=== PATIENT | female | born 1965 | race Caucasian/White ===

== ENCOUNTER 2020-12-09 00:53 | Inpatient (IN) | payer BC, SELFPAY ==
[2020-12-09] VITALS (12 sets, daily range): BP systolic 100–121; BP diastolic 61–82; PULSE 71–88; RESP 14–24; TEMP 35.9–36.9; O2SAT 93–98; BMI 30.5; BMI 30.2
--- NOTE | 2020-12-09 01:30 | ED_ITS ---
HPI - General Adult General Stated complaint: thinks pancreatitis attack Time Seen by Provider: 12/09/20 01:00 History of Present Illness HPI narrative: 55-year-old woman with a history of hyperlipidemia and hypothyroidism who presents with what she believes is acute recurrent pancreatitis. She states that she has had episodes previously that she had assumed were autoimmune related. She denies any regular alcohol use takes only Synthroid. Her symptoms began yesterday with mild right-sided abdominal pain that continued to increase until 11:00 p.m. tonight when it was so severe that she was no longer able to manage pain at home. Yesterday and today she was eating and drinking only clear liquids. She denies any fevers, cough, palpitations she had a normal bowel movement this morning. No dysuria no flank pain. She describes her current pain as severe right upper quadrant radiating through to her back associated with abdominal distension. Related Data Allergies Allergy/AdvReac Type Severity Reaction Status Date / Time No Known Drug Allergies Allergy Verified 12/09/20 01:39 Review of Systems Review of Systems Narrative: Remainder of complete review of systems is otherwise unremarkable except for that included in the HPI. Patient History Medical History (Updated 12/09/20 @ 05:08 by Nessa Becerra MD) Ectopic Hot flashes Hyperlipidemia Hypothyroidism Pancreatitis Surgical History (Updated 12/09/20 @ 05:08 by Nessa Becerra MD) History of lumbar laminectomy Family History (Updated 12/09/20 @ 05:09 by Nessa Becerra MD) Father Hyperlipidemia Heart disease Mother Substance abuse Alcoholism /alcohol abuse Social History household members: spouse and children Smoking Status: Never smoker alcohol intake: never Exam Narrative Exam Narrative: General: Healthy appearing, in severe distress. Able to give a complete and coherent history. Well-nourished well-developed HEENT: Moist mucous membranes, normal sclera with reactive pupils, mildly diaphoretic secondary to pain Neck: supple Respiratory: Lungs are clear to auscultation, no wheezing no rales no rhonchi. Full and symmetrical air movement Cardiac: Regular rate and rhythm no murmurs no bruits Abdomen: Distended, significantly tender in the upper quadrants worse on the right than the left good bowel tones, no flank pain Skin: Warm and dry, no rashes Neurologic: Grossly neurologically intact with no obvious asymmetries or abnormalities Extremities: No trauma, well perfused Psych: Cooperative, appropriate insight and affect Initial Vital Signs Initial Vital Signs: Vital Signs Pulse Rate 81 12/09/20 01:20 Pulse Oximetry 97 12/09/20 01:20 Course Orders Ordered: ED Orders 12/09/20 01:30 Complete Blood Count AUTO DIFF Stat Comprehensive Metabolic Panel Stat Lipase Stat Lipid Panel Stat Magnesium Stat 12/09/20 01:35 CT abdomen pelvis w con Stat 12/09/20 01:55 COVID19 - ADMIT (DISPATCH ASSOCIATE swab/PCR) Stat Enoxaparin Sodium (Enoxaparin 40 Mg/0.4 Ml Syringe) 40 mg 0.5 mg/kg (40 mg) SUBCUT DAILY STELLA Enoxaparin Sodium (Enoxaparin 40 Mg/0.4 Ml Syringe) 40 mg SUBCUT DAILY STELLA Hydromorphone HCl (Hydromorphone 1 Mg Inj) 1 mg IV Q4H PRN PRN Reason: Pain, Moderate (4-6) Hydromorphone HCl (Hydromorphone 1 Mg Inj) 1 mg IV Q6H PRN PRN Reason: Pain, Severe (7-10) Lactated Ringer's (Lactated Ringers) 1,000 mls @ 150 mls/hr IV CONT STELLA Lactated Ringer's (Lactated Ringers) 1,000 mls @ 100 mls/hr IV CONT STELLA Naloxone HCl (Naloxone 0.4 Mg/Ml Vial) 0.2 mg IV Q2MIN PRN PRN Reason: Opiate Reversal Ondansetron HCl (Ondansetron 4 Mg/2 Ml Inj) 4 mg IV Q6HR PRN PRN Reason: Nausea And Vomiting Ondansetron HCl (Ondansetron 4 Mg/2 Ml Inj) 4 mg IV Q8HR PRN PRN Reason: Nausea And Vomiting Discontinued Medications Hydromorphone HCl (Hydromorphone 0.5 Mg Inj) 0.5 mg IV Q15MIN PRN PRN Reason: Pain, Last Admin: 12/09/20 03:28 Dose: 0.5 mg Documented by: Admin: 12/09/20 01:47 Dose: 0.5 mg Documented by: ELEN Sodium Chloride (Normal Saline 0.9%) 1,000 mls @ 1,000 mls/hr IV BOLUS ONE Stop: 12/09/20 02:33 Last Infusion: 12/09/20 03:24 Dose: 0 mls/hr Documented by: Admin: 12/09/20 01:46 Dose: 1,000 mls/hr Documented by: ELEN Ondansetron HCl (Ondansetron 4 Mg/2 Ml Inj) 4 mg IV NOW ONE Stop: 12/09/20 01:35 Last Admin: 12/09/20 01:47 Dose: 4 mg Documented by: ELEN Vital Signs Vital signs: Vital Signs - 8 hr 12/09/20 01:20 12/09/20 01:30 12/09/20 01:39 Temperature 98.2 F Pulse Rate 81 80 82 Respiratory Rate 24 Blood Pressure 120/82 Pulse Oximetry 97 96 98 12/09/20 02:00 12/09/20 02:30 12/09/20 03:00 Temperature Pulse Rate 78 82 71 Respiratory Rate Blood Pressure Pulse Oximetry 95 97 96 Medical Decision Making Medical Records Medical records reviewed: Yes I reviewed the patient's medical records. Lab Data Lab results reviewed: Yes I reviewed the patient's lab results. Result diagrams: 12/09/20 01:30 12/09/20 01:30 Labs: Lab Results 12/09/20 12/09/20 12/09/20 Range/Units 01:30 01:30 01:30 WBC 8.2 (4.5-11.0) X10^3/uL RBC 4.46 (4.0-5.2) X10^6/uL Hgb 13.1 (12.0-16.0) g/dL Hct 39.3 (36-46) % MCV 88.1 (80-100) fL MCH 29.4 (26-34) PG MCHC 33.4 (30-36) % RDW 13.5 (11.6-14.8) % Plt Count 210 (150-400) X10^3/uL Neut % (Auto) 65.5 (50-75) % Lymph % (Auto) 25.7 (25-40) % [place] % (Auto) 6.5 (3-14) % Eos % (Auto) 1.7 L (2-4) % Baso % (Auto) 0.6 (0-2) % Neut # (Auto) 5400 (8916-1226) /uL Lymph # (Auto) 2100 (8635-9438) /uL [place] # (Auto) 500 (0-900) /uL Eos # (Auto) 100 (0-450) /uL Baso # (Auto) 100 (0-100) /uL Sodium 137 (137-145) mmol/L Potassium 3.6 (3.4-5.1) mmol/L Chloride 106 (98-107) mmol/L Carbon Dioxide 21 L (22-32) mmol/L BUN 17 (7-17) mg/dL Creatinine 0.68 (0.52-1.04) mg/dL Estimated GFR > 60.0 (>60) mL/min BUN/Creatinine Ratio 25.0 H (6-22) Glucose 171 H (70-100) mg/dL Calcium 9.7 (8.4-10.2) mg/dL Magnesium 1.9 (1.6-2.3) mg/dL Total Bilirubin 0.3 (0.2-1.3) mg/dL AST 37 H (14-36) IU/L ALT 30 (<35) IU/L Alkaline Phosphatase 63 (38-126) U/L Total Protein 7.3 (6.3-8.2) g/dL Albumin 4.2 (3.5-5.0) g/dL Globulin 3.1 (1.7-4.1) g/dL Albumin/Globulin Ratio 1.4 (1.0-2.8) Triglycerides 310 H (35-150) mg/dL Cholesterol 233 H (140-199) mg/dL LDL Cholesterol, Calc 130 H (<100) mg/dL HDL Cholesterol 41 (40-60) mg/dL Lipase 35152 H (23-300) U/L SARS-CoV-2 (PCR) (Negative) 12/09/20 Range/Units 01:55 WBC (4.5-11.0) X10^3/uL RBC (4.0-5.2) X10^6/uL Hgb (12.0-16.0) g/dL Hct (36-46) % MCV (80-100) fL MCH (26-34) PG MCHC (30-36) % RDW (11.6-14.8) % Plt Count (150-400) X10^3/uL Neut % (Auto) (50-75) % Lymph % (Auto) (25-40) % [place] % (Auto) (3-14) % Eos % (Auto) (2-4) % Baso % (Auto) (0-2) % Neut # (Auto) (6322-1722) /uL Lymph # (Auto) (3797-6375) /uL [place] # (Auto) (0-900) /uL Eos # (Auto) (0-450) /uL Baso # (Auto) (0-100) /uL Sodium (137-145) mmol/L Potassium (3.4-5.1) mmol/L Chloride (98-107) mmol/L Carbon Dioxide (22-32) mmol/L BUN (7-17) mg/dL Creatinine (0.52-1.04) mg/dL Estimated GFR (>60) mL/min BUN/Creatinine Ratio (6-22) Glucose (70-100) mg/dL Calcium (8.4-10.2) mg/dL Magnesium (1.6-2.3) mg/dL Total Bilirubin (0.2-1.3) mg/dL AST (14-36) IU/L ALT (<35) IU/L Alkaline Phosphatase (38-126) U/L Total Protein (6.3-8.2) g/dL Albumin (3.5-5.0) g/dL Globulin (1.7-4.1) g/dL Albumin/Globulin Ratio (1.0-2.8) Triglycerides (35-150) mg/dL Cholesterol (140-199) mg/dL LDL Cholesterol, Calc (<100) mg/dL HDL Cholesterol (40-60) mg/dL Lipase (23-300) U/L SARS-CoV-2 (PCR) Negative (Negative) Imaging Data CT scan - abdomen/pelvis: Radiologist's Impression: Acute interstitial pancreatitis without evidence of pancreatic necrosis or peripancreatic fluid collection. Stranding and edema surround the entirety of the pancreas greatest at the level of the mid/distal pancreas and tail. Reactive mucosal thickening of the adjacent duodenum. Jagdeep Casper DO [facility] Narrative Medical decision making narrative: 55-year-old woman with a prior history of pancreatitis sick presents with acute onset right-sided abdominal pain with lipase of greater than 30,[address] scan that confirmed pancreatitis with significant stranding and edema around the mid and distal pancreas and tail. Given the degree of pain that she is in the lipase level and acute findings on CT scan recommendation at this point will be to admit her to the hospital for fluids continue NPO status and continue to investigate reasons why she may be continuing to develop pancreatitis. At this point there is no evidence of sep sis, acute cholecystitis, renal failure, pneumonia, acute coronary syndrome. Pain has been much better controlled with small doses of Dilaudid. Fluids been helpful as well. She is safe for transfer to the floor Discharge Plan Departure Patient Disposition: Admitted as Observation Clinical Impression: Pancreatitis Qualifiers: Chronicity: acute Pancreatitis type: unspecified pancreatitis type Acute pancreatitis complication: unspecified Qualified Code(s): K85.90 - Acute pancreatitis without necrosis or infection, unspecified Admit Date/Time: 12/09/20 03:17 Admit Provider: Nessa Becerra
--- NOTE | 2020-12-09 01:35 | DI.CT.S_ITS ---
PROCEDURE: CT ABDOMEN PELVIS W CON INDICATIONS: severe RUQ pain increasing for 24hrs TECHNIQUE: After the administration of intravenous contrast, 5 mm thick sections acquired from the diaphragm to the symphysis. 5 mm coronal and sagittal reformats were acquired. For radiation dose reduction, the following was used: automated exposure control, adjustment of mA and/or kV according to patient size. COMPARISON: None. FINDINGS: Image quality: Excellent. ABDOMEN: Lung bases: Lung bases are clear. Heart size is normal. Solid organs: Liver is enlarged and diffusely low density consistent with hepatic steatosis. There are a few small areas of suspected focal fatty sparing. Subcentimeter density in the left lobe subcapsular could represent a small hemangioma. Gallbladder is not distended. No calcified gallstones. Biliary system is non dilated. [id number] free fluid adjacent to the body and tail the pancreas. Pancreatic enhancement appears uniform. No pancreatic necrosis identified. There is no pancreatic ductal dilatation. No pancreatic calcifications. Spleen is at the upper limits of normal measuring 13 cm, (4/41). No adrenal nodules. Kidneys demonstrate normal size and enhancement, without hydronephrosis. Peritoneum and bowel: Increased conspicuity of the duodenal and stomach mucosa likely reactive. Bowel loops demonstrate normal wall thickness and caliber. The appendix is not dilated. No free fluid or air. Nodes and vessels: No retroperitoneal or mesenteric adenopathy by size criteria. Aorta and inferior vena cava are normal in size. Miscellaneous: No ventral hernias. PELVIS: Genitourinary: Bladder wall thickness is normal. Posterior fundal intramural fibroid measuring 2.3 cm. Suspect additional smaller thyroids. Trace free fluid in the pelvic cul-de-sac likely physiologic. Miscellaneous: No inguinal hernias or adenopathy. Bones: No suspicious bony lesions. No vertebral body compression fractures. IMPRESSION: 1. Acute interstitial edematous pancreatitis, moderate severity. Moderate-size acute peripancreatic fluid collection. No necrosis identified. 2. Suspect reactive changes to the stomach and duodenum. No bowel obstruction. 3. Marked hepatic steatosis. Hepatomegaly. This report is concordant with the overnight preliminary interpretation. Dictated by: Christian Espino M.D. on 12/09/2020 at 8:35 Approved by: Christian Espino M.D. on 12/09/2020 at 8:46
[2020-12-09 01:44] LABS: Add Manual Diff / Slide Review NO; Basophils Absolute Auto 100 /uL (0-100); Basophils Percent Auto 0.6 % (0-2); Eosinophils Absolute Auto 100 /uL (0-450); Eosinophils Percent Auto 1.7 % (2-4); Hematocrit 39.3 % (36-46); Hemoglobin 13.1 g/dL (12.0-16.0); Lymphocytes Absolute Auto 2100 /uL (1100-4500); Lymphocytes Percent Auto 25.7 % (25-40); Mean Corpuscular HGB Conc 33.4 % (30-36); Mean Corpuscular Hemoglobin 29.4 PG (26-34); Mean Corpuscular Volume 88.1 fL (80-100); Monocytes Absolute Auto 500 /uL (0-900); Monocytes Percent Auto 6.5 % (3-14); Neutrophils Absolute Auto 5400 /uL (1500-7000); Neutrophils Percent Auto 65.5 % (50-75); Platelet Count 210 X10^3/uL (150-400); Red Blood Cell Count 4.46 X10^6/uL (4.0-5.2); Red Cell Distribution Width 13.5 % (11.6-14.8); White Blood Cell Count 8.2 X10^3/uL (4.5-11.0)
[2020-12-09] MEDS: SODIUM CHLORIDE 0.9% 1,000 ML 1000 ML IV (01:46)
[2020-12-09] MEDS: HYDROMORPHONE 0.5 MG INJ IV ×2 (01:47→03:28)
[2020-12-09] MEDS: ONDANSETRON 4 MG/2 ML INJ IV ×2 (01:47→08:44)
[2020-12-09 01:48] LABS: Alanine Aminotransferase 30 IU/L (<35); Albumin 4.2 g/dL (3.5-5.0); Albumin Globulin Ratio 1.4 (1.0-2.8); Alkaline Phosphatase 63 U/L (38-126); Aspartate Aminotransferase 37 IU/L (14-36); Bilirubin Total 0.3 mg/dL (0.2-1.3); Blood Urea Nitrogen 17 mg/dL (7-17); Calcium 9.7 mg/dL (8.4-10.2); Carbon Dioxide 21 mmol/L (22-32); Chloride 106 mmol/L (98-107); Estimated Glomerular Filt Rate > 60.0 mL/min (>60); Globulin 3.1 g/dL (1.7-4.1); Glucose 171 mg/dL (70-100); HEMOLYSIS < 15 (0-50); Magnesium 1.9 mg/dL (1.6-2.3); Potassium 3.6 mmol/L (3.4-5.1); Sodium 137 mmol/L (137-145); Total Protein 7.3 g/dL (6.3-8.2)
[2020-12-09 02:15] LABS: Lipase 30892 U/L (23-300)
[2020-12-09 02:57] LABS: COVID19 - ADMIT (NP swab/PCR) Negative (Negative)
[2020-12-09 03:23] LABS: Cholesterol 233 mg/dL (140-199); HDL Cholesterol 41 mg/dL (40-60); LDL Cholesterol Calculated 130 mg/dL (<100); Triglycerides 310 mg/dL (35-150)
--- NOTE | 2020-12-09 03:49 | PC.NURSE ---
Report given to Yudi; patient transported up via wheelchair @ [id number]
--- NOTE | 2020-12-09 04:56 | DI.MRI.S_ITS ---
PROCEDURE: MR ABDOMEN WO CON INDICATIONS: Acute pancreatitis. r/o anatomical issue TECHNIQUE: Coronal HASTE through the abdomen, axial 2-D FLASH in- and [id number], and breath-hold T2 FSE with fat saturation through the biliary system and pancreas. Oblique coronal and axial thin-slice HASTE, radial thick-slab HASTE centered on the extrahepatic bile ducts. COMPARISON: [facility], CT, CT ABDOMEN PELVIS W CON, 12/09/2020, 1:59. FINDINGS: Image quality: Diagnostic. Pancreas and biliary system: The gallbladder demonstrates no stones, gallbladder wall thickening, or pericholecystic fluid. Intra- and extra-hepatic biliary ducts are non dilated. The pancreas appears edematous and thickened with peripancreatic edema and fluid consistent with acute pancreatitis. There is a small region of indistinct T2 hyperintensity and T1 hypointensity anteriorly within the pancreatic head corresponding to a subtle region of hypoenhancement on the prior CT. Findings likely represent necrosis. No discrete loculated peripancreatic fluid collection. Pancreatic duct is normal in caliber, without evidence of pancreatic divisum. Other solid organs: The liver demonstrates heterogeneous dropout on [id number] imaging consistent with fatty infiltration with areas of relative sparing including along the gallbladder fossa. Spleen is normal in size. No adrenal nodules. The kidneys demonstrate no hydronephrosis. Nodes and vessels: No retroperitoneal or mesenteric adenopathy by size criteria. Aorta and inferior vena cava are normal in size. Bowel and peritoneum: Visualized bowel loops are normal in caliber. As noted above, there is peripancreatic free fluid tracking inferiorly within the mesentery and along the left anterior pararenal space. Lung bases: There is mild dependent atelectasis in the right lower lobe. Heart size is normal. Bones and soft tissues: No ventral hernias. Bone marrow is of normal overall signal. IMPRESSION: 1. Peripancreatic edema and fluid consistent with acute pancreatitis. No loculated peripancreatic fluid collection. 2. Small indistinct region of probable necrosis is demonstrated anteriorly in the pancreatic head. The differential includes a subtle mass although this is considered less likely. Recommend a follow-up pancreatic protocol study in 3-6 months to demonstrate resolution if clinically indicated. 3. No evidence of pancreatic divisum or other definite pancreatic duct anatomic variant. No pancreatic duct dilatation. 4. No evidence of cholelithiasis or choledocholithiasis. No biliary ductal dilatation. Dictated by: Severiano Harvey M.D. on 12/09/2020 at 11:41 Approved by: Severiano Harvey M.D. on 12/09/2020 at 11:53
--- NOTE | 2020-12-09 04:58 | P.HP_ITS ---
History of Present Illness History of Present Illness Date Patient Seen: 12/09/20 Chief complaint: thinks pancreatitis attack Narrative: The patient is a 55-year-old female with a history of hyperlipidemia, postmenopausal syndrome, and a history of recurrent pancreatitis. Patient reports she developed bloating and discomfort about 5 days ago. She discontinued her medication for hyperlipidemia. The patient developed some minimal abdominal pain earlier today. Later the pain became quite severe. She describes pain in the midepigastric radiating to the back. She has had recurrent episodes of pancreatitis. She has never been hospitalized. However she was seen in the emergency room for this. She typically will make herself NPO drinking liquids and then the symptoms were resolved. She apparently was seen by a general merchandise manager who diagnosed her as having autoimmune pancrea titis. The patient is not a drinker. She has had no abdominal surgery except for ectopic . She has had no trauma to her abdomen. Patient was evaluated in the emergency room with a CT scan. Showed acute pancreatitis. Her white count was elevated at 8. Her lipase is elevated at over 30,000. Patient is admitted to the hospital at this time for inpatient treatment of acute pancreatitis. Patient does report a 20 lb weight gain over the past year. She has had no fever chills. She denies any nausea or vomiting. She has had no hematemesis melena or bright red blood per rectum. She denies any dysuria hematuria or pyuria. Patient did have some shortness of breath prior to onset o f symptoms. No jaundice. Patient History Medical History (Updated 12/09/20 @ 05:08 by Nessa Becerra MD) Ectopic Hot flashes Hyperlipidemia Hypothyroidism Pancreatitis Surgical History (Updated 12/09/20 @ 05:08 by Nessa Becerra MD) History of lumbar laminectomy Family & Social History Family History (Updated 12/09/20 @ 05:09 by Nessa Becerra MD) Father Hyperlipidemia Heart disease Mother Substance abuse Alcoholism /alcohol abuse Social History: household members spouse,children Prior Living Arrangements House Safety & Behavioral: Feels Safe in Current Yes Environment Been Physically Hurt or No Threatened By a Person Suicidal Ideation Description None Suicide Plan Description No Plan Tobacco & Substance use: Smoking Status Never smoker alcohol intake never alcohol intake frequency 0-2 drinks per day Substance Use Type does not use Meds Home Medications and Allergies Allergies Allergy/AdvReac Type Severity Reaction Status Date / Time No Known Drug Allergies Allergy Verified 12/09/20 01:39 Review of Systems Review of Systems ROS: Yes All systems reviewed with the patient and are negative except as otherwise documented Exam Vital Signs (past 8 hours): - 12/09/20 01:20 12/09/20 01:30 12/09/20 01:39 Temperature 98.2 F Pulse Rate 81 80 82 Respiratory Rate 24 Blood Pressure 120/82 Pulse Oximetry 97 96 98 12/09/20 02:00 12/09/20 02:30 12/09/20 03:00 Temperature Pulse Rate 78 82 71 Respiratory Rate Blood Pressure Pulse Oximetry 95 97 96 12/09/20 04:40 Temperature 97.2 F L Pulse Rate 81 Respiratory Rate 16 Blood Pressure 121/75 Pulse Oximetry 95 Oxygen Delivery Method Room Air Oxygen Flow Rate 0 Narrative Exam Narrative: Pleasant female lying in bed in no obvious distress HEENT: Normocephalic atraumatic, extraocular muscles are intact, oropharynx is clear, neck is supple without adenopathy Lungs: Clear to auscultation Cardiac exam: Regular rate and rhythm normal S1-S2 Abdomen: Mildly distended, soft, tenderness in the midepigastric and right upper quadrant, no rebound tenderness, no board-like rigidity, no palpable mass Extremities: No edema Skin exam: No lesion Neuro exam: Nonfocal Psychiatric exam: Patient is awake alert appropriate, no hallucinations, no delusions, Objective Labs Result Diagrams: 12/09/20 01:30 12/09/20 01:30 Labs: Laboratory Results - last 24 hr 12/09/20 12/09/20 12/09/20 01:30 01:30 01:30 WBC 8.2 RBC 4.46 Hgb 13.1 Hct 39.3 MCV 88.1 MCH 29.4 MCHC 33.4 RDW 13.5 Plt Count 210 Neut % (Auto) 65.5 Lymph % (Auto) 25.7 [place] % (Auto) 6.5 Eos % (Auto) 1.7 L Baso % (Auto) 0.6 Neut # (Auto) 5400 Lymph # (Auto) 2100 [place] # (Auto) 500 Eos # (Auto) 100 Baso # (Auto) 100 Sodium 137 Potassium 3.6 Chloride 106 Carbon Dioxide 21 L BUN 17 Creatinine 0.68 Estimated GFR > 60.0 BUN/Creatinine Ratio 25.0 H Glucose 171 H Calcium 9.7 Magnesium 1.9 Total Bilirubin 0.3 AST 37 H ALT 30 Alkaline Phosphatase 63 Total Protein 7.3 Albumin 4.2 Globulin 3.1 Albumin/Globulin Ratio 1.4 Triglycerides 310 H Cholesterol 233 H LDL Cholesterol, Calc 130 H HDL Cholesterol 41 Lipase 48325 H SARS-CoV-2 (PCR) 12/09/20 01:55 WBC RBC Hgb Hct MCV MCH MCHC RDW Plt Count Neut % (Auto) Lymph % (Auto) [place] % (Auto) Eos % (Auto) Baso % (Auto) Neut # (Auto) Lymph # (Auto) [place] # (Auto) Eos # (Auto) Baso # (Auto) Sodium Potassium Chloride Carbon Dioxide BUN Creatinine Estimated GFR BUN/Creatinine Ratio Glucose Calcium Magnesium Total Bilirubin AST ALT Alkaline Phosphatase Total Protein Albumin Globulin Albumin/Globulin Ratio Triglycerides Cholesterol LDL Cholesterol, Calc HDL Cholesterol Lipase SARS-CoV-2 (PCR) Negative Assessment & Plan Assessment & Plan narrative: Impression 1. 55-year-old female admitted to the hospital with recurrent pancreatitis -abdominal CT confirms acute pancreatitis -lipase elevated at 30,892 -WBC normal at 8.2 -risk factors include hyperlipidemia, however the patient's total cholesterol is only 233, and triglycerides 310+ -given recurrent episodes would recommend MRCP to rule out pancreatic duct abnormality -will start IV hydration, antiemetics, and IV pain medication, -patient will be kept NPO 2. Medications have not been verify as the patient does not know what medication she is on -she believes she is on a statin, fenofibrate, thyroid medication, and estrogen -will verify medications once of pharmacies open -patient will be kept NPO for now 3. Hypothyroidism -will resume thyroid once she is able to take oral medications 4. Postmenopausal since -will hold estrogen Will she is in the hospital 5. Hyperlipidemia -resume her statin and fenofibrate stools his have been verified 6. DVT prophylaxis -patient will be placed on Lovenox 40 mg subcu daily Patient indicates she is a full code Her surrogate decision maker is her Patient will be admitted as an inpatient as it is anticipated she will be in the hospital greater than 48 hours recovering IV narcotics given the significance of her pancreatitis Quality VTE Deep Vein Thrombosis/Pulmonary Embolism Present on Admission: Yes
[2020-12-09] MEDS: LACTATED RINGERS 1,000 ML 150 ML IV ×3 (05:14→20:53)
--- NOTE | 2020-12-09 06:36 | PC.NURSE ---
Patient alert and oriented admitted to acute [facility] 0[facility]. 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 Also has purse, wallet, with hurd and cards. Patient declined to place anything in the safe at this time, but knows she can change her mind and place items in safe any other time.
[2020-12-09] MEDS: HYDROMORPHONE 1 MG INJ IV ×2 (06:47→12:21)
[2020-12-09] MEDS: ENOXAPARIN 40 MG/0.4 ML SYRINGE SUBCUT (08:44)
--- NOTE | 2020-12-09 16:22 | PC.NURSE ---
Addendum entered by Sujtaa Johns R.N. 12/09/20 22:00: Pt continues w/mild epi-gastric/abomenal discomfort. Med w/tylenol w/fair relief. HL intact/patent Call light w/in reach. Independent in room. Continue w/ plan of care. Original Note: Pt sitting in chair, States abdominal discomfort 2/10 Lungs clear, SpO2 98% RA IVF of LR infusing via pump into LFA w/o incidence. Call light w/in reach, pt calls appropriately for needs.
[2020-12-09] MEDS: ACETAMINOPHEN 325 MG TABLET 650 MG PO ×2 (16:28→22:51)
--- NOTE | 2020-12-09 16:43 | CM.DANOTE ---
DCP Continued: Patient is a 55 year-old female who was admitted to the hospital for acute pancreatitis without necrosis or infection. PCP is a provider at [facility] in [place], [place]. Primary payer is [employer]. CO FOUNDER Student met with patient she was alert, oriented and sitting in a chair. Her son Dany was also present. CO FOUNDER Student provided education on role of social work and discharge case management. 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 Patient reside in [place] full-time with her and children However, she is her to visit her son who is stationed in the area. She anticipates being in [place] until the end of December. Patient and son anticipate D/C when medically stable to son?s residence. Plan: Anticipate D/C when medically stable. CM Team to remain available. DWAYNE Freedman MSW Student Discharge Planning/Care Management CM Discharge Assessment Start: 12/09/20 14:51 Freq: Status: Active Protocol: Document 12/09/20 14:51 [place] (Rec: 12/09/20 14:53 [place] [id number]) Discharge Planning Assessment Assigned Straightening Roll Operator DWAYNE Wan Contact Information Dany Weems, son Advance Directives? No Advance Directives on File No History Provided By Patient,Family Member,Medical Record Prior Living Arrangements House Comment Currently staying with son in [place] Household Members children Type of transporation used prior to Drives own vehicle admit Willing to Return to Facility? Yes Independent with ADL's Yes Is patient alert and oriented? Yes Caregiver for Another No Barriers to Discharge No Discharge Plan Home Transportation Arrangement Jose Saenz will provide transportation Whiteboard Updated in Patient Room with Yes name and ext. # of Straightening Roll Operator Review Status In Process
[2020-12-10] MEDS: HYDROMORPHONE 1 MG INJ IV (00:23)
[2020-12-10] MEDS: SODIUM CHLORIDE 0.9% FLUSH 10 ML IV (00:29)
[2020-12-10] MEDS: LACTATED RINGERS 1,000 ML 150 ML IV ×2 (01:51→09:32)
[2020-12-10 05:20] VITALS: BP 104/62; PULSE 75; RESP 16; TEMP 36.3; O2SAT 93
[2020-12-10] MEDS: ACETAMINOPHEN 325 MG TABLET 650 MG PO ×2 (05:30→13:18)
[2020-12-10 05:49] LABS: Alanine Aminotransferase 25 IU/L (<35); Albumin 3.3 g/dL (3.5-5.0); Albumin Globulin Ratio 1.2 (1.0-2.8); Alkaline Phosphatase 55 U/L (38-126); Aspartate Aminotransferase 35 IU/L (14-36); BUN Creatinine Ratio 12.5 (6-22); Bilirubin Total 0.4 mg/dL (0.2-1.3); Blood Urea Nitrogen 9 mg/dL (7-17); Carbon Dioxide 29 mmol/L (22-32); Chloride 106 mmol/L (98-107); Estimated Glomerular Filt Rate > 60.0 mL/min (>60); Globulin 2.7 g/dL (1.7-4.1); Glucose 122 mg/dL (70-100); HEMOLYSIS < 15 (0-50); Potassium 4.1 mmol/L (3.4-5.1); Sodium 138 mmol/L (137-145)
[2020-12-10 05:50] LABS: Add Manual Diff / Slide Review NO; Basophils Absolute Auto 0 /uL (0-100); Basophils Percent Auto 0.8 % (0-2); Eosinophils Absolute Auto 100 /uL (0-450); Eosinophils Percent Auto 2.2 % (2-4); Hematocrit 33.1 % (36-46); Lymphocytes Absolute Auto 1500 /uL (1100-4500); Lymphocytes Percent Auto 29.8 % (25-40); Mean Corpuscular HGB Conc 33.4 % (30-36); Mean Corpuscular Hemoglobin 29.8 PG (26-34); Mean Corpuscular Volume 89.5 fL (80-100); Monocytes Absolute Auto 300 /uL (0-900); Monocytes Percent Auto 5.6 % (3-14); Neutrophils Absolute Auto 3000 /uL (1500-7000); Neutrophils Percent Auto 61.6 % (50-75); Platelet Count 158 X10^3/uL (150-400); Red Cell Distribution Width 13.3 % (11.6-14.8); White Blood Cell Count 4.9 X10^3/uL (4.5-11.0)
--- NOTE | 2020-12-10 08:52 | PM.DS.1 ---
History of Present Illness History of Present Illness Chief complaint: thinks pancreatitis attack Narrative: H and P per Dr. Becerra: The patient is a 55-year-old female with a history of hyperlipidemia, postmenopausal syndrome, and a history of recurrent pancreatitis. Patient reports she developed bloating and discomfort about 5 days ago. She discontinued her medication for hyperlipidemia. The patient developed some minimal abdominal pain earlier today. Later the pain became quite severe. She describes pain in the midepigastric radiating to the back. She has had recurrent episodes of pancreatitis. She has never been hospitalized. However she was seen in the emergency room for this. She typically will make herself NPO drinking liquids and then the symptoms were resolved. She apparently was seen by a roll machine operator who diagnosed her as having autoimmune pancreatitis. The patient is not a drinker. She has had no abdominal surgery except for ectopic . She has had no trauma to her abdomen. Patient was evaluated in the emergency room with a CT scan. Showed acute pancreatitis. Her white count was elevated at 8. Her lipase is elevated at over 30,000. Patient is admitted to the hospital at this time for inpatient treatment of acute pancreatitis. Patient does report a 20 lb weight gain over the past year. She has had no fever chills. She denies any nausea or vomiting. She has had no hematemesis melena or bright red blood per rectum. She denies any dysuria hematuria or pyuria. Patient did have some shortness of breath prior to onset of symptoms. No jaundice. Discharge Providers Provider Date of admission: 12/09/20 03:17 Discharge Date: 12/10/20 Discharge provider: Jorge Bosch MD Summary Hospital Course Discharge Diagnosis: 1. Recurrent pancreatitis, acute 2. Hypothyroidism 3. Postmenopausal symptoms 4. Hyperlipidemia Hospital Course: Ms. Carmona was admitted with pancreatitis with imaging consistent with mild pancreatitis and labs with lipase greater than 30,000. Otherwise she was clinically stable. She had mildly elevated lipid panel, but unlikely the cause of her symptoms. She had MRI performed which did not find a structural cause of her pancreatitis. She had a small indistinct area in the head of the pancreas of unclear etiology, possibly necrosis, less likely mass, and should get follow up abdominal MRI with dedicated pancreatic protocol in 3-6 months. There has been apparent consideration by her roll machine operator that she has possible autoimmune pancreatitis. She is encourage to follow up for further evaluation to determine etiology, and possible consideration of endoscopic ultrasound if indicated. Initially she was kept NPO, her diet was advanced as tolerated and on day of discharge she was tolerating eating low fat foods without symptoms. Exam Vital Signs (past 8 hours): Oxygen Delivery Method Room Air Oxygen Flow Rate 0 Narrative Exam Narrative: GEN: no acute distress HEENT: PERRL, moist mucous membranes Lungs: Clear to auscultation Cardiac exam: Regular rate and rhythm, no murmurs Abdomen: Mildly distended, soft, minimal tenderness Objective Labs Result Diagrams: 12/10/20 05:20 12/10/20 05:20 [facility] Medical History (Updated 12/09/20 @ 05:08 by Nessa Becerra MD) Ectopic Hot flashes Hyperlipidemia Hypothyroidism Pancreatitis Surgical History (Updated 12/09/20 @ 05:08 by Nessa Becerra MD) History of lumbar laminectomy Family History (Updated 12/09/20 @ 05:09 by Nessa Becerra MD) Father Hyperlipidemia Heart disease Mother Substance abuse Alcoholism /alcohol abuse Social History household members: children Smoking Status: Never smoker alcohol intake: never Discharge Plan Discharge Plan Patient Disposition: Home Provider Discharge Comment: Ms. Carmona came in with abdominal pain and was found to have pancreatitis. She was given pain medications, IV fluids, and initially was not able to eat much. But she improved quickly and was able to tolerate low fat foods. She had multiple imaging of her abdomen including CT and MRI and no cause of her pancreatitis was found. She has had these episodes previously, and she should follow up with gastroenterology for further workup, and consideration of possible endoscopic ultrasound to determine why she develops pancreatitis. Discharge orders & Medications Prescriptions: New hydrocodone-acetaminophen 5-300 mg tablet 1 tab PO Q4-6H PRN (Reason: pain) Qty: 10 RF: 0 ondansetron HCl 8 mg tablet 4 mg PO Q8H PRN (Reason: nausea and vomiting) Qty: 8 RF: 0 Continued levothyroxine 137 mcg tablet 137 mcg PO QAM RF: 0 pravastatin 20 mg tablet 20 mg PO BEDTIME RF: 0 fenofibrate 160 mg tablet 160 mg PO DAILY RF: 0 estradiol-norethindrone acet 0.5-0.1 mg tablet 1 tab PO DAILY RF: 0 Diet/Activity/Treatments Diet: Carb-consistent/Diabetic, Low-fat and Low-cholesterol Quality VTE Deep Vein Thrombosis/Pulmonary Embolism Present on Admission: Yes MIPS - DC The patient has current or prior documentation of left ventricular ejection fraction (LVEF) less than 40%, or moderate or severely depressed left ventricular systolic function.: No
[2020-12-10] MEDS: ENOXAPARIN 40 MG/0.4 ML SYRINGE SUBCUT (08:59)
[2020-12-10 09:00] VITALS: BP 110/64; PULSE 70; RESP 16; TEMP 36.5; O2SAT 95
[2020-12-10 13:00] VITALS: BP 128/55; PULSE 80; RESP 16; TEMP 36.7; O2SAT 97
--- NOTE | 2020-12-10 13:38 | PC.NURSE ---
Patient has been sitting in chair since beginning of the shift. Patient is comfortable and states that she feels better when she is sitting in the chair compared to laying in bed. Patient has tolerated the liquid diet great and states that she would like to try something a little thicker but still easy on her stomach. Patient states that the only pain she is experiencing is a mild headache, which Tylenol was given for.
[2020-12-10 15:25] VITALS: BP 162/80; PULSE 87; RESP 16; TEMP 36.6
--- NOTE | 2020-12-10 16:15 | PC.NURSE ---
Addendum entered by Sujata Johns R.N. 12/10/20 16:51: Pt ride is here, Escorted via W/C by staff to waiting vehicle. D/C'd in stable condition. Addendum entered by Sujata Johns R.N. 12/10/20 16:37: Discharge instruction & RX given Awaiting ride. Original Note: Pt up ad keith in rom. Orders received for discharge. HL removed intact. Awaiting transportation arrangements.
--- NOTE | 2020-12-11 08:14 | CM.DPC ---
DCP Discharge Per MD, pt was medically stable to d/c home last night after SW shift and per RN pt given d/c instructions and stable for d/c and had a ride home without any concerns. DWAYNE Lugo
== END 2020-12-10 16:45 | disposition home or self-care (01) | DRG 440 ==
LOC: ED 02:39 → AC 03:17
PROVIDERS: Admitting Provider Internal Medicine; Emergency Provider Emergency Medicine; Referring Provider Emergency Medicine; Visit Provider Internal Medicine
DX: K85.80 Other acute pancreatitis without necrosis or infection (principal); E78.5 Hyperlipidemia, unspecified; E03.9 Hypothyroidism, unspecified; Z79.890 Hormone replacement therapy; Z20.822 Contact with and (suspected) exposure to COVID-19
CPT/HCPCS: 36415; 74177; 74181; 80053; 80061; 83690; 83735; 85025; 87635; 96361; 96374; 96375; 99284; C9803; J1170; J1650; J2405; Q9967